=== PATIENT | male | born 1970 | race Caucasian/White ===

== ENCOUNTER 2019-09-30 08:14 | Day surgery (SDC) | payer BC, SELFPAY ==
--- NOTE | 2019-09-30 08:34 | EKG12_ITS ---
Test Reason : PRE OP Blood Pressure : / mmHG Vent. Rate : 073 BPM Atrial Rate : 073 BPM P-R Int : 190 ms QRS Dur : 092 ms QT Int : 380 ms P-R-T Axes : 030 064 055 degrees QTc Int : 418 ms Normal sinus rhythm Normal ECG No previous ECGs available Confirmed by EVERETTE BALDERAS, APRIL ([id number]), editor newspaper RYAN MEDINA ([id number]) on 10/01/2019 7:53:31 AM Referred By: Geoff Porter Confirmed By:APRIL GAVIRIA MD
[2019-09-30 09:04] VITALS: BP 151/101; PULSE 81; RESP 16; TEMP 37.2; O2SAT 96; BMI 34.5
[2019-09-30 09:19] LABS: Hematocrit 39.3 % (40-54); Hemoglobin 12.6 g/dL (13.0-16.5); Mean Corp Hgb Conc 32.1 g/dL (32-36); Mean Corpuscular Hgb 28.8 pg (27.0-32.0); Mean Corpuscular Volume 89.7 fL (80-94); Mean Platelet Vol. 9.9 fl (6.2-12.0); Platelet Count 187 K/mm3 (150-450); RBC Distribution Width SD 42.8 fl (35.1-43.9); Red Blood Count 4.38 M/mm3 (4.6-6.2)
[2019-09-30 09:32] LABS: Anion Gap 4 (5-15); BUN 24 mg/dL (7-18); BUN/Creat Ratio 26.3 RATIO (10-20); Chloride 107 mmol/L (98-107); Creatinine, Serum 0.91 mg/dL (0.70-1.30); EST Glomerular Filtration Rate 93 mL/min (>60); Est Glom Filt Rate - Afr Amer 113 mL/min (>60); Estimated Creatinine Clearance 100.27 ml/min; Glucose 95 mg/dL (74-106); Potassium 3.9 mmol/L (3.5-5.1); Sodium Level 138 mmol/L (136-145)
--- NOTE | 2019-09-30 10:05 | DCINST_ITS ---
Discharge Diet: No Restrictions Discharge Activity: Return to Normal Activity Additional Activity Instructions:: Ear drops 5 drops each ear twice a day for 2 days. Allergies/Adverse Reactions: Allergies No Known Allergies Allergy (Verified 09/30/19 08:56) Medications to take at Discharge NK 09/23/19 Orders to be completed after discharge: Basic Metabolic Profile (BMP) Time Frame: 09/30/19, Facility: [facility], Location: Laboratory CBC-Complete Blood Cnt No Diff Time Frame: 09/30/19, Facility: [facility], Location: Laboratory Primary Care Physician: Maximo Delgado III, MD [Primary Care Provider] - Test Results: Test results from this visit will be discussed in further detail at your follow- up appointment, if applicable.
[2019-09-30] MEDS: Ciprofloxacin 0.3% 2.5ml Bottle 1 DRP (10:16)
--- NOTE | 2019-09-30 10:43 | PCM.OPRPT ---
Report of Operation Date of Procedure: 09/30/19 Pre-Operative Diagnosis: recurrent acute otitis media Post-Operative Diagnosis: same Surgery/Procedure Performed:: bilateral myringotomy with tubes Description of Surgical Findings:: pus bilaterally Type of Anesthesia:: General Anesthesiologist: Carlton Broderick Estimated Blood Loss (mL): 5 cc Description of Procedure: The patient was taken to the operating room on 09/30/19. The patient was placed in the supine position on the operating room table. The patient was given sufficient general anesthesia. The operating microscope was used throughout the entire case. A speculum was inserted into the patient's left ear. Cerumen was removed using a curette. An incision was placed in the anterior inferior quadrant of the tympanic membrane. Pus was suctioned from the ear with a #5 suction. A Cynthia Bobin tube was placed without difficulty. Antibiotic drops were instilled into the patient's ear. Next, a speculum was inserted into the patient's right ear. Cerumen was removed using a curette. An incision was placed in the anterior inferior quadrant of the tympanic membrane. Significant bleeding was controlled with afrin. Pus was suctioned using a #5 suction from the middle ear. A collar button tube was placed without difficulty. Antibiotic drops were instilled into the patient's ear. The patient was then awoken. They were brought to the recovery room in stable condition. Blood loss minimal replacement none sponge needle and instrument counts correct at the end of the procedure.
[2019-09-30 10:45] VITALS: BP 134/88; BP 151/101; PULSE 82; RESP 18; O2SAT 92
[2019-09-30 10:47] VITALS: BP 134/88; BP 151/101; PULSE 90; RESP 18; TEMP 36.8; O2SAT 91
[2019-09-30 11:01] VITALS: BP 135/73; BP 151/101; PULSE 87; RESP 12; O2SAT 96
[2019-09-30 11:03] VITALS: BP 123/87; BP 151/101; PULSE 89; RESP 89; TEMP 36.9; O2SAT 93
[2019-09-30 11:28] VITALS: BP 151/101
== END 2019-09-30 11:32 | disposition home or self-care (01) ==
LOC: SDC 08:16 → AC 08:21
PROVIDERS: PCP Family Medicine; Referring Provider Otolaryngology; Visit Provider Otolaryngology
PROC: (CPT 69436; principal; 2019-09-30 10:00)
DX: H66.006 Acute suppurative otitis media without spontaneous rupture of ear drum, recurrent, bilateral (principal)
CPT/HCPCS: 00126; 69436; 36415; 80048; 85027; 93005; J7120; J2405

== ENCOUNTER 2022-08-22 07:02 | Day surgery (SDC) | payer OTHER, SELFPAY ==
[2022-08-22 07:40] VITALS: BP 134/81; PULSE 81; RESP 18; TEMP 36.6; O2SAT 96; BMI 39.6
[2022-08-22] MEDS: Lactated Ringers 1,000 ML 15 ML IV (07:51)
--- NOTE | 2022-08-22 08:50 | PCM.DC.SUM ---
Providers Primary Care Physician: Dr. Demond Ojeda MD Reason For Visit: BMT Medications at Discharge Home Medications lisinopril 10 mg-hydrochlorothiazide 12.5 mg tablet 1 tab PO DAILY 08/17/22 Weight / BMI Weight Weight: 125.2 kg Body Mass Index (BMI) 39.6 D/C Instructions Discharge Diet: No restrictions Discharge Activity: Return to Normal Activity Additional Dressing/Incision Instructions: Ear drops....5 drops each ear every 12 hours for 3 doses (start tonight) Please Follow Up With: Geoff Porter MD When: 3 weeks Meaningful Use Info Meaningful Use Diagnoses (Choose all that apply): None applicable Discharge Plan Admission Attending Provider: Geoff Porter Primary Care Provider: Demond Ojeda Discharge Orders/Prescriptions Prescriptions: No Action lisinopril-hydrochlorothiazide 10-12.5 mg tablet 1 tab PO DAILY Label Comments: TAKE 1 TABLET BY MOUTH ONCE DAILY Referrals / Follow Up: Demond Ojeda MD [Primary Care Provider] - Disposition Disposition (needs filled in before D/C Order can be placed): Home, Self Care
[2022-08-22] MEDS: Oxymetazoline 0.05% 1 SPRAY SPRAY.BTL 15 SPRAY (09:02)
--- NOTE | 2022-08-22 09:17 | PCM.OPRPT ---
Report of Operation Date of Procedure: 08/22/22 Pre-Operative Diagnosis: recurrent acute otitis media Post-Operative Diagnosis: same Surgery/Procedure Performed:: bilateral myringotomy with tubes Surgeon: Geoff Porter Type of Anesthesia: General Anesthesiologist: Carlton Broderick Estimated Blood Loss (mL): minimal Description of Procedure: The patient was taken to the operating room on 08/22/2022. The patient was placed in the supine position on the operating room table. The patient was given sufficient general anesthesia. The operating microscope was used throughout the entire case. A speculum was inserted into the patient's left ear. Cerumen was removed using a curette. An incision was placed in the anterior inferior quadrant of the tympanic membrane. A full serous effusion was suctioned on his #5 suction. A collar button tube was placed without difficulty. Antibiotic drops were instilled into the patient's ear. Next, a speculum was inserted into the patient's right ear. Cerumen was removed using a curette. An incision was placed in the anterior inferior quadrant of the tympanic membrane. Hemostasis was achieved with Afrin. Once hemostasis was achieved the Afrin was suctioned away. A collar-button tube was placed. Antibiotic drops were instilled into the patient's ear. The patient was then awoken. They were brought to the recovery room in stable condition. Blood loss minimal replacement none sponge needle and instrument counts correct at the end of the procedure.
[2022-08-22 09:25] VITALS: BP 134/81; BP 140/101; PULSE 102; RESP 18; TEMP 36.8; O2SAT 93
[2022-08-22 09:30] VITALS: BP 131/89; BP 134/81; PULSE 97; RESP 16; O2SAT 93
[2022-08-22 09:46] VITALS: BP 125/80; BP 134/81; PULSE 94; RESP 16; O2SAT 92
[2022-08-22 10:00] VITALS: BP 114/81; BP 134/81; PULSE 89; RESP 16; TEMP 36.6; O2SAT 92
[2022-08-22 10:20] VITALS: BP 134/81
== END 2022-08-22 10:28 | disposition home or self-care (01) ==
LOC: SDC 07:08 → AC 07:08
PROVIDERS: PCP Internal Medicine; Referring Provider Otolaryngology; Visit Provider Otolaryngology
PROC: (CPT 69436; principal; 2022-08-22 08:45)
DX: H66.006 Acute suppurative otitis media without spontaneous rupture of ear drum, recurrent, bilateral (principal); I10 Essential (primary) hypertension; Z90.49 Acquired absence of other specified parts of digestive tract
CPT/HCPCS: 69436; 00126; J7120; J2405